=== PATIENT | male | born 1955 | race Caucasian/White ===

== ENCOUNTER 2020-09-26 11:41 | Emergency (ER) | payer SELFPAY ==
--- NOTE | 2020-09-26 13:55 | EDPHYS ---
Physician Documentation [facility] Name: Doc Ely Age: 64 yrs Sex: Male : 1955 Arrival Date: 09/26/2020 Time: 11:43 Bed 13 Private MD: ED Physician Yoni Boone HPI: 09/26 13:08 This 64 yrs old Male presents to ER via Ambulatory with complaints of jmm Laceration To Arm. 13:08 The patient has a laceration occurred at home. Onset: The symptoms/episode jmm began/occurred acutely, just prior to arrival. Associated signs and symptoms: Pertinent negatives: deformity, dizziness, heavy bleeding, loss of consciousness, numbness distal to injury. The patient has experienced similar episodes in the past. Patient states his arm was cut by a 2 x 6 jagged piece of wood. UTD on tetanus immunization. Historical: - Allergies: 12:01 PENICILLINS; aa5 - PMHx: 12:01 Hyperlipidemia; Hypertension; aa5 12:02 Diabetes - NIDDM; aa5 - PSHx: 12:01 None; aa5 - Immunization history:: Last tetanus immunization: < 5 years ago. - Social history:: Smoking status: Patient denies any tobacco usage or history of. ROS: 13:08 Constitutional: Negative for fever, chills, and weight loss, Cardiovascular: Negative jmm for chest pain, palpitations, and edema, Respiratory: Negative for shortness of breath, cough, wheezing, and pleuritic chest pain. 13:08 MS/extremity: Positive for injury or acute deformity, laceration. 13:08 All other systems are negative. Exam: 13:08 Constitutional: This is a well developed, well nourished patient who is awake, alert, jmm and in no acute distress. Head/Face: atraumatic. Eyes: EOMI, no conjunctival erythema appreciated ENT: Moist Mucus Membranes Neck: Trachea midline, Supple Chest/axilla: Normal chest wall appearance and motion. Cardiovascular: Regular rate and rhythm. No edema appreciated Respiratory: Normal respirations, no respiratory distress appreciated Abdomen/GI: Non distended, soft Back: Normal ROM 13:08 MS/ Extremity: Moves all extremities, no obvious deformities appreciated, no edema noted to the lower extremities Neuro: Awake and alert, normal gait Psych: Behavior is normal, Mood is normal, Patient is cooperative and pleasant 13:08 Skin: 3 cm laceration noted to the left arm on the volar surface. Vital Signs: 12:00 BP 145 / 89; Pulse 93; Resp 18 S; Temp 98.2(TE); Pulse Ox 100% on R/A; aa5 14:05 BP 140 / 88; Pulse 78; Resp 16; Pulse Ox 100% on R/A; vg1 Laceration: 13:53 Wound Repair of 3cm ( 1.2in ) subcutaneous laceration to left arm. Distal jmm neuro/vascular/tendon intact. Anesthesia: Local anesthetic administered with 5 mls of 1% lidocaine w/ Epi. Wound prep: Extensive cleansing, Wound irrigation with saline by wi, Particulate matter removal of wood, Copious irrigation. Skin closed with 3 4-0 Prolene using simple sutures and sterile technique. Patient tolerated well. MDM: 13:08 Patient medically screened. [facility] 13:53 Data reviewed: vital signs, nurses notes. Counseling: I had a detailed discussion with surinder the patient and/or guardian regarding: the historical points, exam findings, and any diagnostic results supporting the discharge/admit diagnosis, the need for outpatient follow up, to return to the emergency department if symptoms worsen or persist or if there are any questions or concerns that arise at home. ED course: Patient given wound infection return precautions. patient understood and agrees with the plan of care. . Administered Medications: No medications were administered Disposition: 09/26/20 13:55 Discharged to Home. Impression: Arm Laceration. - Condition is Stable. - Discharge Instructions: Laceration Care, Adult. - Prescriptions for Bactrim DS 800- 160 mg Oral Tablet - take 1 tablet by ORAL route every 12 hours for 7 days; 14 tablet. - Medication Reconciliation Form, Thank You Letter, Antibiotic Education, Prescription Opioid Use form. - Follow up: Private Physician; When: 7 - 10 days; Reason: Recheck today's complaints, Continuance of care, Re-evaluation by your physician. Addendum: 09/29/2020 07:39 Co-signature as Attending Physician, Yoni Boone MD I agree with the assessment and c layton plan of care. Signatures: Yoni Boone MD MD cha Mickail, Joel, PA PA jmm Calderon, Audri, RN RN aa5 Sakshi Rothman, RN RN vg1 Corrections: (The following items were deleted from the chart) 09/26 14:05 13:55 09/26/2020 13:55 Discharged to Home. Impression: Arm Laceration. Condition is vg1 Stable. Forms are Medication Reconciliation Form, Thank You Letter, Antibiotic Education, Prescription Opioid Use. Follow up: Private Physician; When: 7 - 10 days; Reason: Recheck today's complaints, Continuance of care, Re-evaluation by your physician. surinder
--- NOTE | 2020-09-26 13:55 | ER ---
Nurse's Notes [facility] Name: Doc Ely Age: 64 yrs Sex: Male : 1955 Arrival Date: 09/26/2020 Time: 11:43 Bed 13 Private MD: Diagnosis: Arm Laceration Presentation: 09/26 12:00 Chief complaint: Patient states: "I was working in the back yard and cut my arm with aa5 wood". Laceration noted to left FA, no active bleeding noted, dressing applied. 12:00 Coronavirus screen: At this time, the client does not indicate any symptoms associated aa5 with coronavirus-19. Ebola Screen: Patient negative for fever greater than or equal to 101.5 degrees Fahrenheit, and additional compatible Ebola Virus Disease symptoms. Complicating Factors: There are no complicating factors for this patient. Initial Sepsis Screen: Does the patient meet any 2 criteria? No. Patient's initial sepsis screen is negative. Does the patient have a suspected source of infection? No. Patient's initial sepsis screen is negative. Risk Assessment: Do you want to hurt yourself or someone else? Patient reports no desire to harm self or others. Onset of symptoms was September 2020. 12:00 Acuity: RAMON 4 aa5 12:00 Method Of Arrival: Ambulatory aa5 Historical: - Allergies: 12:01 PENICILLINS; aa5 - PMHx: 12:01 Hyperlipidemia; Hypertension; aa5 12:02 Diabetes - NIDDM; aa5 - PSHx: 12:01 None; aa5 - Immunization history:: Last tetanus immunization: < 5 years ago. - Social history:: Smoking status: Patient denies any tobacco usage or history of. Screenin:48 Abuse screen: Denies threats or abuse. Nutritional screening: No deficits noted. vg1 Tuberculosis screening: No symptoms or risk factors identified. Fall Risk No fall in past 12 months (0 pts). No secondary diagnosis (0 pts). No IV (0 pts). Ambulatory Aid- None/Bed Rest/Nurse Assist (0 pts). Gait- Normal/Bed Rest/Wheelchair (0 pts) Mental Status- Oriented to own ability (0 pts). Total Nye Fall Scale indicates No Risk (0-24 pts). Assessment: 13:00 General: Appears in no apparent distress. comfortable, Behavior is calm, cooperative. vg1 Pain: Denies pain. Neuro: Level of Consciousness is awake, alert, obeys commands, Oriented to person, place, time, situation. Cardiovascular: Patient's skin is warm and dry. Respiratory: Airway is patent Respiratory effort is even, unlabored. Musculoskeletal: Circulation, motion, and sensation intact. Injury Description: Laceration sustained to Left FA is clean. Vital Signs: 12:00 BP 145 / 89; Pulse 93; Resp 18 S; Temp 98.2(TE); Pulse Ox 100% on R/A; aa5 14:05 BP 140 / 88; Pulse 78; Resp 16; Pulse Ox 100% on R/A; vg1 ED Course: 11:43 Patient arrived in ED. rg4 12:00 Arm band placed on. aa5 12:05 Triage completed. aa5 13:07 Camden Ramirez PA is PHCP. surinder 13:07 Yoni Boone MD is Attending Physician. surinder 13:47 Sakshi Rothman, RN is Primary Nurse. vg1 13:48 Patient has correct armband on for positive identification. Bed in low position. Call vg1 light in reach. 14:04 No provider procedures requiring assistance completed. Patient did not have IV access vg1 during this emergency room visit. Administered Medications: No medications were administered Outcome: 13:55 Discharge ordered by . [facility] 14:04 Discharged to home ambulatory, with family. vg1 14:04 Condition: stable 14:04 Discharge instructions given to patient, Instructed on discharge instructions, follow up and referral plans. medication usage, wound care, Demonstrated understanding of instructions, follow-up care, medications, wound care, Prescriptions given X 1. 14:05 Patient left the ED. vg1 Signatures: Camden Ramirez PA PA jmm Calderon, Audri, RN RN Mallory Greenfield Sakshi Jovel, DIMAS RN rissa1
[2020-09-26] MEDS ORDERED: LIDOCAINE 1% W/EPI 1:100,000 MDV 20 ML VIAL ONE (13:57)
[2020-09-26 14:16] VITALS: TEMP 98.2; O2SAT 100
[2020-09-26 14:17] VITALS: BP 140/88
== END 2020-09-26 14:05 | disposition home or self-care (01) ==
LOC: ER 11:41
PROC: 0JQH0ZZ Repair Left Lower Arm Subcutaneous Tissue and Fascia, Open Approach (ICD-10-PCS; principal; 2020-09-26)
DX: S41.112A Laceration without foreign body of left upper arm, initial encounter (principal); W26.8XXA Contact with other sharp object(s), not elsewhere classified, initial encounter; Y92.009 Unspecified place in unspecified non-institutional (private) residence as the place of occurrence of the external cause; I10 Essential (primary) hypertension; Z88.0 Allergy status to penicillin
CPT/HCPCS: 99282

== ENCOUNTER 2023-12-15 10:31 | Inpatient (IN) | payer SELFPAY ==
[2023-12-15] MEDS ORDERED: NA CHLORIDE 0.9% 1,000 ML ONE (11:06)
[2023-12-15 11:28] LABS: Absolute Basophils 0.1 K/uL (0-0.5); Absolute Eosinophils 0.2 K/uL (0-0.5); Absolute Lymphocytes (CBC) 1.3 K/uL (0.7-4.9); Absolute Monocytes 0.6 K/uL (0.1-1.3); Absolute Neutrophil 6.2 K/uL (1.8-8.0); Eosinophils % 2.4 % (0-4.4); Hematocrit 46.4 % (39.6-49.0); Hemoglobin 15.5 g/dL (13.6-17.9); Lymphocytes % 15.8 % (15.3-44.8); MCH 32.5 pg (27.0-35.0); MCHC 33.4 g/dL (32.0-36.0); MCV 97.4 fL (80-100); MPV 8.7 fL (7.6-11.3); Monocytes % 7.3 % (3.3-12.3); Neutrophils % 73.5 % (41.7-73.7); Platelets 324 thou/uL (152-406); RBC Red Blood Cell Count 4.77 M/uL (4.33-5.43)
[2023-12-15 11:34] LABS: PT Prothrombin Time 11.4 SECONDS (9.4-12.5); Protime INR 1.02
--- NOTE | 2023-12-15 11:34 | RAD REPORT ---
EXAM DESCRIPTION: CT - Head Brain Wo Cont - 12/15/2023 11:26 am CLINICAL HISTORY: Dizziness COMPARISON: none TECHNIQUE: Computed axial tomography of the head was obtained. IV contrast was not requested. All CT scans are performed using dose optimization technique as appropriate and may include automated exposure control or mA/KV adjustment according to patient size. FINDINGS: An intracranial bleed is not seen The ventricles are normal in caliber No significant hypodense areas within the brain visualized No extra-axial fluid collection is noted. Fluid within the sinuses/ mastoids is not seen IMPRESSION: No acute intracranial abnormality is seen If patient's symptoms persist MRI of the brain would be recommended
--- NOTE | 2023-12-15 11:43 | RAD REPORT ---
EXAM DESCRIPTION: CTHead angio12/15/2023 11:26 am CLINICAL HISTORY: Dizziness COMPARISON: none TECHNIQUE: 100 cc Isovue [address] angiogram of the head was obtained. 3D MIPS reconstruction performed. All CT scans are performed using dose optimization technique as appropriate and may include automated exposure control or mA/KV adjustment according to patient size. FINDINGS: The basilar, anterior cerebral, middle cerebral and posterior cerebral arteries do not dem onstrate a significant stenosis An aneurysm is not seen No large vessel occlusion IMPRESSION: No significant that abnormality is displayed
--- NOTE | 2023-12-15 11:44 | RAD REPORT ---
EXAM DESCRIPTION: Lobo Angio12/15/2023 11:26 am CLINICAL HISTORY: Dizziness COMPARISON: None TECHNIQUE: 100 cc Isovue [address] angiogram of the neck was obtained. 3D MIPS reconstruction performed. All CT scans are performed using dose optimization technique as appropriate and may include automated exposure control or mA/KV adjustment according to patient size. FINDINGS: Visualized aortic arch and great vessels unremarkable Moderate stenosis distal left internal carotid artery Minimal plaque within the remainder the common carotid, internal carotid and external carotid arterie s bilaterally. The Left vertebral artery terminates into PICA. Vertebral arteries unremarkable No dissection is seen. Nascet crieria Mild stenosis 0 to 49 % Moderate stenosis 50-69% Severe stenosis 70-99% IMPRESSION: Moderate stenosis distal left internal carotid artery
[2023-12-15 11:47] LABS: Anion Gap 8.4 mEq/L (5.0-15.0); Potassium 4.4 mEq/L (3.5-5.1); Troponin High Sensitivity 6.2 pg/mL (<58.9)
--- NOTE | 2023-12-15 12:07 | RAD REPORT ---
EXAM DESCRIPTION: MRI - Brain Wo Cont - 12/15/2023 11:56 am CLINICAL HISTORY: Dizziness COMPARISON: Head CT head CT December 15, 2023 TECHNIQUE: Axial, sagittal, and coronal magnetic resonance images of the brain were obtained. FINDINGS: Mild signal within periventricular, deep and subcortical white matter probably ischemic ch anges secondary to small vessel disease Diffusion-weighted/ADC mapping does not reveal small area of abnormal signal left cerebellum compatib le with acute infarction The ventricles are normal caliber. An extra-axial fluid collection is not noted. Fluid within the sinuses/mastoids is not seen IMPRESSION: Small acute left cerebellar infarction
--- NOTE | 2023-12-15 12:24 | RAD REPORT ---
EXAM DESCRIPTION: Arlene Single View12/15/2023 12:06 pm CLINICAL HISTORY: Dizziness COMPARISON: none FINDINGS: The lungs appear clear of acute infiltrate. The heart is normal size IMPRESSION: No acute abnormalities displayed
[2023-12-15] MEDS ORDERED: TENECTEPLASE 50 MG/10 ML VIAL IV ONE (12:34)
--- NOTE | 2023-12-15 12:52 | ER ---
Nurse's Notes [facility] Name: Doc Ely Age: 68 yrs Sex: Male : 1955 Arrival Date: 12/15/2023 Time: 10:31 Bed 19 Private MD: Diagnosis: Cerebellar stroke syndrome-Acute infarction Presentation: 12/14 10:56 Chief complaint: Patient states: sudden onset dizziness while outside doing yard work. kc6 states he wasn't able to stand. reports this happening last week as well. Coronavirus screen: At this time, the client does not indicate any symptoms associated with coronavirus-19. Ebola Screen: No symptoms or risks identified at this time. Initial Sepsis Screen: Does the patient meet any 2 criteria? No. Patient's initial sepsis screen is negative. Does the patient have a suspected source of infection? No. Patient's initial sepsis screen is negative. Risk Assessment: Do you want to hurt yourself or someone else? Patient reports no desire to harm self or others. Onset of symptoms was December 15, 2023. 10:56 Method Of Arrival: Wheelchair kc6 10:56 Acuity: RAMON 3 kc6 Triage Assessment: 10:58 General: Appears in no apparent distress. comfortable, well groomed, well developed, kc6 Behavior is calm, cooperative, appropriate for age. Pain: Denies pain. EENT: No signs and/or symptoms were reported regarding the EENT system. Neuro: Level of Consciousness is awake, alert, obeys commands, Oriented to person, place, time, situation, Appropriate for age [employer] Clerk are equal bilaterally Moves all extremities. Full function Gait is steady, Speech is normal, Facial symmetry appears normal, Pupils are PERRLA, Intact Babinski is positive Reports dizziness, weakness in right leg and left leg. Cardiovascular: Capillary refill < 3 seconds. Respiratory: Airway is patent Trachea midline Respiratory effort is even, unlabored, Respiratory pattern is regular, symmetrical. GI: No signs and/or symptoms were reported involving the gastrointestinal system. : No signs and/or symptoms were reported regarding the genitourinary system. Derm: No signs and/or symptoms reported regarding the dermatologic system. Skin is intact, is healthy with good turgor, Skin is pink, warm \T\ dry. Musculoskeletal: No signs and/or symptoms reported regarding the musculoskeletal system. Circulation, motion, and sensation intact. Capillary refill < 3 seconds, Range of motion: intact in all extremities. Historical: - Allergies: 10:58 PENICILLINS; kc6 - PMHx: 10:58 Diabetes - NIDDM; Hyperlipidemia; Hypertension; kc6 - PSHx: 10:58 None; kc6 - Immunization history:: Client reports receiving the 2nd dose of the Covid vaccine, Flu vaccine is not up to date. - Infectious Disease History:: Denies. - Social history:: Smoking status: Patient denies any tobacco usage or history of. - Family history:: not pertinent. - Hospitalizations: : No recent hospitalization is reported. Screenin:59 [facility] ED Fall Risk Assessment (Adult) History of falling in the last 3 months, kc6 including since admission No falls in past 3 months (0 pts) Confusion or Disorientation No (0 pts) Intoxicated or Sedated No (0 pts) Impaired Gait No (0 pts) Mobility Assist Device Used No (0 pt) Altered Elimination No (0 pt) Score/Fall Risk Level 0 - 2 = Low Risk. Abuse screen: Denies threats or abuse. Denies injuries from another. Nutritional screening: No deficits noted. Tuberculosis screening: No symptoms or risk factors identified. 13:09 [place] Swallow Protocol Exclusion Criteria: Unable to remain alert for testing: No NPO me1 for medical/surgical reason by provider order No Head-of-bed restricted <30 degrees Yes Tracheostomy tube present No No thin liquids due to preexisting dysphagia/baseline modified diet thickened liquids No Brief Cognitive Screen What is your name? Normal, Where are you right now? Normal, What year is it? Normal. Oral Mechanism Examination Facial Symmetry: Normal, Motion: Normal, Lip Closure: Normal, 3 oz Water Swallow Challenge: Pt able to drink all water without stopping, coughing, choking or throat clearing: Yes Result: PASS Notified: Isidoro Herbert MD. 13:09 VAN Screening: Arm Drift: Patient shows no arm weakness. Patient is VAN negative. es3 Visual Disturbance: No visual disturbance noted. Aphasia: No aphasia noted. Neglect: No neglect noted. Assessment: 10:59 Reassessment: please see triage. kc6 11:22 Reassessment: pt to CT via wheelchair. kc6 12:05 Reassessment: pt returned from CT via wheelchair. kc6 15:22 General: transfer delayed, phlebotomy and speech pathologist at bedside . me1 Vital Signs: 10:56 BP 179 / 93; Pulse 79; Resp 19 S; Pulse Ox 99% on R/A; Weight 96.62 kg (R); Height 6 kc6 ft. 0 in. (R); Pain 0/10; 12:00 BP 168 / 77; Pulse 79; Resp 16; Pulse Ox 100% ; me1 13:00 BP 146 / 73; Pulse 87; Resp 15; Pulse Ox 100% ; me1 14:00 BP 146 / 76; Pulse 88; Resp 15; Pulse Ox 99% on R/A; me1 10:56 Body Mass Index 28.89 (96.62 kg, 182.88 cm) kc6 10:56 Pain Scale: Adult kc6 Harwood Coma Score: 10:56 Eye Response: spontaneous(4). Motor Response: obeys commands(6). Verbal Response: kc6 oriented(5). Total: 15. NIH Stroke Scale Scores: 10:56 NIHSS Score: 0 kc6 13:09 NIHSS Score: 0 co1 ED Course: 10:33 Patient arrived in ED. ra3 10:42 Isidoro Herbert MD is Attending Physician. rn 10:47 Meena Kaba RN is Primary Nurse. kc6 10:58 Triage completed. kc6 10:58 Arm band placed on. kc6 10:59 Patient has correct armband on for positive identification. Bed in low position. Call kc6 light in reach. Side rails up X 1. Adult w/ patient. Pulse ox on. NIBP on. Pillow given. 11:[address] via wheelchair. kc6 11:22 Inserted saline lock: 22 gauge in left antecubital area, using aseptic technique. Blood kc6 collected. Flushed with 10 mL NS. 11:28 CT Head Brain wo Cont In Process Unspecified. EDMS 11:[address] In Process Unspecified. EDMS 11:28 Head angio In Process Unspecified. EDMS 11:48 Brain Wo Cont MRI In Process Unspecified. EDMS 12:05 Patient moved back from CT. kc6 12:07 XRAY Chest (1 view) In Process Unspecified. EDMS 12:08 Report given to Annalisa Urban RN. kc6 12:51 Bill Finley MD is Hospitalizing Provider. rn 13:27 1327 CM attempted initial assessment, provider at bedside discussing plan of care. ane 13:32 CM met with patient and his Lorie at the bedside. Patient identified by name and josie . Demographic sheet confirmed. Patient states he lives with his and granddaughter in a single story home. reports prior to admission, he performs ADLS independently and without physical limitations. NO MPOA in place at this time. No HH, home oxygen, DME or other medical services at this time. Mr. Ely's plan is to return home upon discharge. Lorie states either her or their granddaughter may transport Mr. Ely home. CM team will continue to follow and coordinate care. 14:59 Inserted saline lock: 20 gauge in right antecubital area, using aseptic technique. me1 14:59 No provider procedures requiring assistance completed. Patient admitted, IV remains in me1 place. 15:00 Provided Education on: s/s of bleeding, including GI bleed- report dark tarry stools or me1 coffee ground stools/emesis, verbalized understanding. . Administered Medications: 12:08 Drug: NS 0.9% IV 1000 ml IV at 1000 ml once Route: IV; Rate: 1000 ml; Site: left co1 antecubital; 13:28 Follow up: Response: No adverse reaction; IV Status: Completed infusion; IV Intake: me1 1000ml 12:45 Drug: TNK FOR STROKE - Tenecteplase IV (Administer 10 ml NS flush BEFORE and me1 AFTER tenecteplase) 0.25 mg/kg IV at per protocol once; MAX DOSE 25 mg, IVP over 5 seconds {Co-Signature: ap3 (Luann Sales RN).} Route: IV; Rate: per protocol; Site: left antecubital; 14:43 Follow up: Response: No adverse reaction; IV Status: Completed infusion me1 13:39 Drug: foLIC Acid IVPB 1 mg IVPB once Route: IVPB; Site: left antecubital; me1 14:42 Follow up: IV Status: Completed infusion; IV Intake: 1339ml me1 Medication: 15:01 VIS not applicable for this client. me1 Intake: 13:28 IV: 1000ml; Total: 1000ml. me1 14:42 IV: 1339ml; Total: 2339ml. me1 Outcome: 12:51 Decision to Hospitalize by Provider. rn 15:00 Admitted to ICU accompanied by nurse, via wheelchair, room -4, on monitor, with chart, co1 Report called to Santa Lopez RN 15:00 Condition: stable 15:00 Instructed on the need for admit, 15:41 Patient left the ED. me1 NIH Stroke Scale - NIH Stroke Score Date: 12/15/2023 Time: 10:56 Total Score = 0 10. Dysarthria (speech clarity - read or repeat words) - 0(Normal) 11. Extinction and Inattention (visual/tactile/auditory/spatial/personal) - 0(No abnormality) 1a. Level of Consciousness (LOC) - 0(Alert) 1b. Level of Consciousness (LOC) (Month \T\ Age) - 0(Both) 1c. LOC Commands (Open \T\ Closes Eyes/Medical Coding Specialist) - 0(Both) 2. Best Gaze (Lateral Gaze Paresis) - 0(Normal) 3. Visual Field Loss - 0(No visual loss) 4. Facial Palsy - 0(Normal) 5a. Left Arm: Motor (10-second hold) - 0(No drift) 5b. Right Arm: Motor (10-second hold) - 0(No drift) 6a. Left Leg: Motor (5-second hold - always test supine) - 0(No drift) 6b. Right Leg: Motor (5-second hold - always test supine) - 0(No drift) 7. Limb Ataxia (finger/nose \T\ heel/caal - test with eyes open) - 0(Absent) 8. Sensory Loss (pinprick arms/legs/face) - 0(Normal) 9. Best Language: Aphasia (description/naming/reading) - 0(No aphasia) Initials: kc6 NIH Stroke Scale - NIH Stroke Score Date: 12/15/2023 Time: 13:09 Total Score = 0 10. Dysarthria (speech clarity - read or repeat words) - 0(Normal) 11. Extinction and Inattention (visual/tactile/auditory/spatial/personal) - 0(No abnormality) 1a. Level of Consciousness (LOC) - 0(Alert) 1b. Level of Consciousness (LOC) (Month \T\ Age) - 0(Both) 1c. LOC Commands (Open \T\ Closes Eyes/Medical Coding Specialist) - 0(Both) 2. Best Gaze (Lateral Gaze Paresis) - 0(Normal) 3. Visual Field Loss - 0(No visual loss) 4. Facial Palsy - 0(Normal) 5a. Left Arm: Motor (10-second hold) - 0(No drift) 5b. Right Arm: Motor (10-second hold) - 0(No drift) 6a. Left Leg: Motor (5-second hold - always test supine) - 0(No drift) 6b. Right Leg: Motor (5-second hold - always test supine) - 0(No drift) 7. Limb Ataxia (finger/nose \T\ heel/caal - test with eyes open) - 0(Absent) 8. Sensory Loss (pinprick arms/legs/face) - 0(Normal) 9. Best Language: Aphasia (description/naming/reading) - 0(No aphasia) Initials: me1 Signatures: Dispatcher [employer] EDIsidoro Barger MD MD rn Campbell, Kaitlyn, RN RN kc6 Annalisa Urban RN RN co1 Elyssa Rojas, DIMAS [id number] Roberta Posadas 3 Viktoriya Rendon RN RN ane Prokisch, Amanda RN ap3
--- NOTE | 2023-12-15 12:52 | EDPHYS ---
Physician Documentation [facility] Name: Doc Ely Age: 68 yrs Sex: Male : 1955 Arrival Date: 12/15/2023 Time: 10:31 Bed 19 Private MD: ED Physician Isidoro Herbert HPI: 12/14 11:30 This 68 yrs old Male presents to ER via Wheelchair with complaints of Dizziness. rn 11:30 The patient presents with feeling faint, generalized weakness, lightheadedness. Onset: rn The symptoms/episode began/occurred this morning. Modifying factors: The symptoms are alleviated by lying down, the symptoms are aggravated by standing up, changing position. Severity of symptoms: At their worst the symptoms were moderate in the emergency department the symptoms have improved. The patient has experienced a previous episode. Historical: - Allergies: 10:58 PENICILLINS; kc6 - PMHx: 10:58 Diabetes - NIDDM; Hyperlipidemia; Hypertension; kc6 - PSHx: 10:58 None; kc6 - Immunization history:: Client reports receiving the 2nd dose of the Covid vaccine, Flu vaccine is not up to date. - Infectious Disease History:: Denies. - Social history:: Smoking status: Patient denies any tobacco usage or history of. - Family history:: not pertinent. - Hospitalizations: : No recent hospitalization is reported. ROS: 11:30 Constitutional: Negative for fever, chills, and weight loss, Eyes: Negative for injury, rn pain, redness, and discharge, Cardiovascular: Negative for chest pain, palpitations, and edema, Respiratory: Negative for shortness of breath, cough, wheezing, and pleuritic chest pain, Abdomen/GI: Negative for abdominal pain, nausea, vomiting, diarrhea, and constipation, Back: Negative for injury and pain, MS/Extremity: Negative for injury and deformity, Skin: Negative for injury, rash, and discoloration, Neuro: Positive for dizziness and lightheadedness, no focal weakness or numbness. No speech or vision changes. Exam: 11:30 Constitutional: This is a well developed, well nourished patient who is awake, alert, rn and in no acute distress. Patient appears flushed and very sweaty from being outside. Eyes: Pupils equal round and reactive to light, extra-ocular motions intact. ENT: Dry mucous membranes Cardiovascular: Regular rate and rhythm. No pulse deficits. Respiratory: No increased work of breathing, no retractions or nasal flaring. Abdomen/GI: Soft, non-tender MS/ Extremity: Pulses equal, no cyanosis. Neurovascular intact. Full, normal range of motion. Equal circumference. Neuro: Awake and alert, GCS 15, oriented to person, place, time, and situation. Cranial nerves II-XII grossly intact. Motor strength 5/5 in all extremities. Sensory grossly intact. Cerebellar exam normal. 17:29 ECG was reviewed by the Attending Physician. rn Vital Signs: 10:56 BP 179 / 93; Pulse 79; Resp 19 S; Pulse Ox 99% on R/A; Weight 96.62 kg (R); Height 6 kc6 ft. 0 in. (R); Pain 0/10; 12:00 BP 168 / 77; Pulse 79; Resp 16; Pulse Ox 100% ; me1 13:00 BP 146 / 73; Pulse 87; Resp 15; Pulse Ox 100% ; me1 14:00 BP 146 / 76; Pulse 88; Resp 15; Pulse Ox 99% on R/A; me1 10:56 Body Mass Index 28.89 (96.62 kg, 182.88 cm) kc6 10:56 Pain Scale: Adult kc6 NIH Stroke Scale Scores: 10:56 NIHSS Score: 0 kc6 13:09 NIHSS Score: 0 me1 Terri Coma Score: 10:56 Eye Response: spontaneous(4). Motor Response: obeys commands(6). Verbal Response: kc6 oriented(5). Total: 15. MDM: 10:42 Patient medically screened. rn 11:04 ED course: Patient reports dizziness while doing work outside, was outside for about 45 rn minutes helping son. States this happened last week as well with dizziness but only lasted about 10 minutes and went away on its own. Now feels much better, denies any focal weakness or numbness. No vision changes. No speech difficulty. Patient reports feeling weak all over and both legs feel like they were going to give out. NIH 0. Patient reports pretty much back to baseline right now and family confirms.. 12:32 ED course: last known normal 10am. rn 12:33 ED course: CT head without acute findings. CT angio head and neck without LVO. MRI rn shows acute left cerebellar infarct. Discussed with patient and onset was 10 AM today, within TNK window, consented and will give TNK.. 12:35 ED course: Delay due to rapid improvement of symptoms prior to arrival, setting in rn which he presented after working outside diaphoretic and sweaty with weakness all over and no focal neurological deficits. NIH was 0. Given MRI finding of acute cerebellar stroke and patient not 100% back to normal, consented for TNK administration as it is still within the window.. 12:50 Differential diagnosis: CVA, generalized weakness, idiopathic dizziness, TIA, vertigo. rn Data reviewed: vital signs, nurses notes, lab test result(s), radiologic studies, CT scan, MRI, and as a result, I will admit patient. Consideration of Admission/Observation Patient was admitted/placed on observation. Escalation of care including admission/observation considered. Care significantly affected by the following chronic conditions: Diabetes, Hypertension. Counseling: I had a detailed discussion with the patient and/or guardian regarding the historical points, exam findings, and any diagnostic results supporting the discharge/admit diagnosis, lab results, radiology results, the need for further work-up and treatment in the hospital. 12:50 ED course: I personally spent 35 minutes engaged in work directly related to the rn individual patient's care. This does not include any time spent performing procedures. The patient has been deemed critically ill because of difficult presentation of symptoms requiring multiple visits and reevaluations with acute stroke requiring TNKase in window. . 13:58 ED course: Patient feeling better status post TNKase. Able to set up without much rn dizziness but still not 100% back to normal.. 12/14 11:03 Order name: Basic Metabolic Panel; Complete Time: 11: 12/14 11:03 Order name: CBC with Diff; Complete Time: 11: rn 12/14 11:03 Order name: Magnesium; Complete Time: 11: rn 12/14 11:03 Order name: NT PRO-BNP; Complete Time: 11: rn 12/14 11:03 Order name: PT-INR; Complete Time: 11: rn 12/14 11:03 Order name: Troponin HS; Complete Time: : rn 12/14 11:41 Order name: CREATININE WHOLE BLOOD; Complete Time: 11: EDAR 12/14 13:03 Order name: Glucose, Ancillary Testing; Complete Time: 13:11 EDAR 12/14 13:48 Order name: RPR EDMS 12/14 13:48 Order name: Vitamin B12 Level EDMS 12/14 13:48 Order name: Vitamin D, 25 (OH), TOTAL EDMS 12/14 13:48 Order name: Basic Metabolic Panel EDMS 12/14 13:48 Order name: Basic Metabolic Panel EDMS 12/14 13:48 Order name: Basic Metabolic Panel EDMS 12/14 13:48 Order name: Basic Metabolic Panel EDMS 12/14 13:48 Order name: Basic Metabolic Panel EDMS 12/14 13:48 Order name: Basic Metabolic Panel EDMS 12/14 13:48 Order name: CBC with Automated Diff EDMS 12/14 13:48 Order name: CBC with Automated Diff EDMS 12/14 13:48 Order name: CBC with Automated Diff EDMS 12/14 13:48 Order name: CBC with Automated Diff EDMS 12/14 13:48 Order name: CBC with Automated Diff EDMS 12/14 13:48 Order name: CBC with Automated Diff EDMS 12/14 13:48 Order name: Lipid Profile EDMS 12/14 13:48 Order name: Lipid Profile EDMS 12/14 13:48 Order name: Magnesium EDMS 12/14 13:48 Order name: Magnesium EDMS 12/14 13:48 Order name: Magnesium EDMS 12/14 13:48 Order name: Magnesium EDMS 12/14 13:48 Order name: Magnesium EDMS 12/14 13:48 Order name: Magnesium EDMS 12/14 13:48 Order name: Phosphorus EDMS 12/14 13:48 Order name: Phosphorus EDMS 12/14 13:48 Order name: Phosphorus EDMS 12/14 13:48 Order name: Phosphorus EDMS 12/14 13:48 Order name: Phosphorus EDMS 12/14 13:48 Order name: Phosphorus EDMS 12/14 13:48 Order name: T4,Total EDMS 12/14 13:48 Order name: T4,Total EDMS 12/14 13:48 Order name: Thyroid Stimulating Hormone EDMS 12/14 13:48 Order name: Thyroid Stimulating Hormone EDMS 12/14 13:48 Order name: Troponin High Sensitivity EDMS 12/14 13:48 Order name: Troponin High Sensitivity EDMS 12/14 13:48 Order name: Troponin High Sensitivity EDMS 12/14 13:48 Order name: Anti-Thrombin III Activity EDMS 12/14 13:48 Order name: C-ANCA Anti-Proteinase 3 EDAR 12/14 13:48 Order name: Cardiolipin Antibodies G,M EDAR 12/14 13:48 Order name: Factor V Leiden Mutation EDAR 12/14 13:48 Order name: Homocysteine [facility] 12/14 13:48 Order name: Miscellaneous Test Lab [facility] 12/14 13:48 Order name: P-ANCA Anti-Myeloperoxidase Ab [facility] 12/14 13:48 Order name: PROTHROMBIN GENE ANALYSIS (F2) [facility] 12/14 13:48 Order name: Protein C Antigen [facility] 12/14 13:48 Order name: Protein Electo w/M Scott Serum EDAR 12/14 13:48 Order name: Protein S (Total [facility] 12/14 11:03 Order name: CT Head Brain wo Cont; Complete Time: 11:50 rn 12/14 11:03 Order name: Neck Angio CT; Complete Time: 11:50 rn 12/14 11:03 Order name: Brain Wo Cont MRI; Complete Time: 12:28 rn 12/14 11:03 Order name: XRAY Chest (1 view); Complete Time: 12:28 rn 12/14 11:07 Order name: Head angio; Complete Time: 11:50 [facility] 12/14 13:48 Order name: Echo with Doppler [facility] 12/14 11:03 Order name: EKG; Complete Time: 11:04 rn 12/14 13:48 Order name: CONS Physician Consult [facility] 12/14 13:48 Order name: IRF Screen [facility] 12/14 13:48 Order name: Physical Therapy Consult [facility] 12/14 13:48 Order name: EKG Electrocardiogram [facility] 12/14 13:48 Order name: Speech Therapy Consult [facility] 12/14 11:03 Order name: IV Start; Complete Time: 11: rn 12/14 11:03 Order name: Cardiac monitoring; Complete Time: 11: rn 12/14 11:03 Order name: EKG - Nurse/Tech; Complete Time: 11: rn 12/14 11:03 Order name: Labs collected and sent; Complete Time: 11: rn 12/14 11:03 Order name: O2 Per Protocol; Complete Time: 11: rn 12/14 11:03 Order name: O2 Sat Monitoring; Complete Time: 11:04 rn EC:29 Rate is 86 beats/min. Rhythm is regular. QRS [place] is Normal. MD interval is normal. QRS rn interval is normal. QT interval is normal. No Q waves. T waves are Normal. No ST changes noted. Clinical impression: Normal ECG. Interpreted by me. Reviewed by me. Administered Medications: 12:08 Drug: NS 0.9% IV 1000 ml IV at 1000 ml once Route: IV; Rate: 1000 ml; Site: left mi1 antecubital; 13:28 Follow up: Response: No adverse reaction; IV Status: Completed infusion; IV Intake: me1 1000ml 12:45 Drug: TNK FOR STROKE - Tenecteplase IV (Administer 10 ml NS flush BEFORE and me1 AFTER tenecteplase) 0.25 mg/kg IV at per protocol once; MAX DOSE 25 mg, IVP over 5 seconds {Co-Signature: ap3 (Luann Sales RN).} Route: IV; Rate: per protocol; Site: left antecubital; 14:43 Follow up: Response: No adverse reaction; IV Status: Completed infusion [facility] 13:39 Drug: foLIC Acid IVPB 1 mg IVPB once Route: IVPB; Site: left antecubital; [facility] 14:42 Follow up: IV Status: Completed infusion; IV Intake: 1339ml me1 Disposition Summary: 12/15/23 12:51 Hospitalization Ordered Notes: Hospitalization Status: Inpatient Admission rn Provider: Bill Finley rn Condition: Stable rn Problem: new rn Symptoms: have improved rn Bed/Room Type: Standard rn Location: Intensive Care Unit(12/15/23 14:10) Room Assignment: 4-(12/15/23 14:50) dw Diagnosis - Cerebellar stroke syndrome - Acute infarction rn Forms: - Medication Reconciliation Form rn - SBAR form rn - Leadership Thank You Letter government instructor time excluding procedures: 12:50 Critical care time: Bedside Care: 35 minutes. Total time: 35 minutes rn NIH Stroke Scale - NIH Stroke Score Date: 12/15/2023 Time: 10:56 Total Score = 0 10. Dysarthria (speech clarity - read or repeat words) - 0(Normal) 11. Extinction and Inattention (visual/tactile/auditory/spatial/personal) - 0(No abnormality) 1a. Level of Consciousness (LOC) - 0(Alert) 1b. Level of Consciousness (LOC) (Month \T\ Age) - 0(Both) 1c. LOC Commands (Open \T\ Closes Eyes/Scalper Operator) - 0(Both) 2. Best Gaze (Lateral Gaze Paresis) - 0(Normal) 3. Visual Field Loss - 0(No visual loss) 4. Facial Palsy - 0(Normal) 5a. Left Arm: Motor (10-second hold) - 0(No drift) 5b. Right Arm: Motor (10-second hold) - 0(No drift) 6a. Left Leg: Motor (5-second hold - always test supine) - 0(No drift) 6b. Right Leg: Motor (5-second hold - always test supine) - 0(No drift) 7. Limb Ataxia (finger/nose \T\ heel/caal - test with eyes open) - 0(Absent) 8. Sensory Loss (pinprick arms/legs/face) - 0(Normal) 9. Best Language: Aphasia (description/naming/reading) - 0(No aphasia) Initials: kc6 NIH Stroke Scale - NIH Stroke Score Date: 12/15/2023 Time: 13:09 Total Score = 0 10. Dysarthria (speech clarity - read or repeat words) - 0(Normal) 11. Extinction and Inattention (visual/tactile/auditory/spatial/personal) - 0(No abnormality) 1a. Level of Consciousness (LOC) - 0(Alert) 1b. Level of Consciousness (LOC) (Month \T\ Age) - 0(Both) 1c. LOC Commands (Open \T\ Closes Eyes/Scalper Operator) - 0(Both) 2. Best Gaze (Lateral Gaze Paresis) - 0(Normal) 3. Visual Field Loss - 0(No visual loss) 4. Facial Palsy - 0(Normal) 5a. Left Arm: Motor (10-second hold) - 0(No drift) 5b. Right Arm: Motor (10-second hold) - 0(No drift) 6a. Left Leg: Motor (5-second hold - always test supine) - 0(No drift) 6b. Right Leg: Motor (5-second hold - always test supine) - 0(No drift) 7. Limb Ataxia (finger/nose \T\ heel/caal - test with eyes open) - 0(Absent) 8. Sensory Loss (pinprick arms/legs/face) - 0(Normal) 9. Best Language: Aphasia (description/naming/reading) - 0(No aphasia) Initials: me1 Signatures: Dispatcher [employer] [facility] Otilia Winslow RN RN dw Nieto, Roman, MD MD rn Botello, Elizabeth eb Campbell, Kaitlyn, RN RN kc6 Annalisa Urban RN RN me1 Luann Sales RN ap3 Corrections: (The following items were deleted from the chart) 11:04 11:04 Neck Angio+CT.RAD.BRZ ordered. EDAR EDMS 11:04 11:04 Brain Wo Cont+MRI.RAD.BRZ ordered. EDAR EDMS 11:04 11:04 BASIC METABOLIC PANEL+C.LAB.BRZ ordered. EDAR EDAR 11:04 11:04 CBC+H.LAB.BRZ ordered. EDAR EDMS 11:04 11:04 MAGNESIUM+C.LAB.BRZ ordered. EDAR EDAR 11:04 11:04 PROBNP+C.LAB.BRZ ordered. EDAR EDMS 11:04 11:04 PROTIME (+INR)+COAG.LAB.BRZ ordered. EDAR EDMS 11:04 11:04 Troponin High Sensitivity+C.LAB.BRZ ordered. EDAR EDMS 11:32 11:30 Constitutional: This is a well developed, well nourished patient who is rn awake, alert, and in no acute distress. Eyes: Pupils equal round and reactive to light, extra-ocular motions intact. ENT: Dry mucous membranes Cardiovascular: Regular rate and rhythm. No pulse deficits. Respiratory: No increased work of breathing, no retractions or nasal flaring. Abdomen/GI: Soft, non-tender MS/ Extremity: Pulses equal, no cyanosis. Neurovascular intact. Full, normal range of motion. Equal circumference. Neuro: Awake and alert, GCS 15, oriented to person, place, time, and situation. Cranial nerves II-XII grossly intact. Motor strength 5/5 in all extremities. Sensory grossly intact. Cerebellar exam normal. rn 14: 13:49 Chest Pa And Lat (2 Views) ordered. [facility] 14:09 12:51 Intensive Care Unit rn eb 14: 12:51 rn eb 14:10 14:09 Telemetry/MedSurg (Inpatient) eb eb 14:10 14:09 225 eb eb 14:28 14:10 eb eb 14:50 14:28 3- eb dw
--- NOTE | 2023-12-15 13:13 | P.HP ---
Certification for Inpatient Patient admitted to: Inpatient With expected LOS: <2 Midnights Practitioner: I am a practitioner with admitting privileges, knowledge of patient current condition, hospital course, and medical plan of care. Services: Services provided to patient in accordance with Admission requirements found in Title 42 Section 412.3 of the Code of Federal Regulations Patient History Date of Service: 12/15/23 Reason for admission: CVA History of Present Illness: Doc Ely is a 68 year old male with PMhx diabetes mellitusNIDDM, hypertension, hyperlipidemia who presents to the ED with chief complaint of feeling faint, lightheadedness, generalized weakness which started this morning. He reports feeling that he could not get off of the lawnmower and asked family to help him at which time it took his and son to help him into the house. He reports never having an episode similar to this in the past. Initial Head CT and CTA are negative for acute findings but MRI head showing "Small acute left cerebellar infarction." TNK administered around 1234. Labs unremarkable. Initial vitals BP 179 / 93; Pulse 79; Resp 19 S; Pulse Ox 99% on R/A CT and CTA of head reports no acute findings CTA neck reports "Moderate stenosis distal left internal carotid artery" MRI brain reports "Small acute left cerebellar infarction." Chest X-ray reports "the lungs appear clear of acute infiltrate. The heart is normal size. IMPRESSION: No acute abnormalities displayed." Doc will be admitted to hospitalist service for further evaluation and treatment of acute CVA, Dr. Vaughan consulted. Allergies Penicillins Allergy (Unverified 07/19/15 08:56) Unknown Home Medications: Amlodipine [Norvasc*] 5 mg PO DAILY 12/15/23 glipiZIDE [Glipizide] 5 mg PO DAILY 12/15/23 lisinopriL [Lisinopril] 20 mg PO DAILY 12/15/23 - Past Medical/Surgical History -: Diabetes mellitus-NIDDM -: HLD -: HTN - Family History Father -: Heart disease Mother -: Cancer Sister -: Heart disease, Cancer Review of Systems General: Weakness Neurological: Other (Dizziness, lightheadedness, feeling faint) Physical Examination - Physical Exam General: Alert, In no apparent distress, Oriented x3 HEENT: Atraumatic, Normocephalic Neck: Supple, JVD not distended Respiratory: Clear to auscultation bilaterally, Normal air movement Cardiovascular: Normal pulses, Regular rate/rhythm, Normal S1 S2 Gastrointestinal: Normal bowel sounds, Soft and benign Musculoskeletal: No clubbing Integumentary: No rashes Neurological: Normal speech, Normal tone - Studies Laboratory Data (last 24 hrs) 12/15/23 12/15/23 12/15/23 11:21 11:21 11:21 WBC 8.40 Hgb 15.5 Hct 46.4 Plt Count 324 PT 11.4 INR 1.02 Sodium 140 Potassium 4.4 BUN 16 Creatinine 1.50 H Glucose 179 H Magnesium 2.0 Assessment and Plan - Plan Assessment and plan Acute CVA Dizziness and weakness - CT and CTA of head reports no acute findings - CTA neck reports "Moderate stenosis distal left internal carotid artery" - MRI brain reports "Small acute left cerebellar infarction." - Consulted Neurology - recommendations appreciated - Admit under observation status - No neurologic deficits on my exam - NIHSS = 0 - Allow permissive hypertension for tonight - q4hr neurochecks - Ordered TTE - PT/OT/BRIDGE MAINTENANCE WORKER evaluation requested, BRIDGE MAINTENANCE WORKER recommends regular diet - Ordered risk profile: Hgb A1c, lipid panel, TSH - Started atorvastatin and folic acid, aspirin on hold until 24 hour s/p TNK given at 1234 Left internal carotid artery stenosis -CTA neck reports "Moderate stenosis distal left internal carotid artery" -Moderate stenosis is 50-69% -Follow up outpatient Diabetes Mellitus-NIDDM -recently stopped metformin -Accu-Chek with sliding scale insulin -A1c in the a.m. HTN/HLD -unclear if he has been treated in the past -will monitor DVT ppx SCD, s/p TNK at 1234 Full code LOS 24 hour OBS Discharge Plan: Home Plan to discharge in: 24 Hours - Advance Directives Does patient have a Living Will: No Does patient have a Durable POA for Healthcare: No
--- NOTE | 2023-12-15 13:26 | EKG ---
Test Date: 2023-12-15 Test Time: 11:12:21 Flying I Instructor: TERRI MEASUREMENT RESULTS: Intervals: Rate: 86 OK: 186 QRSD: 84 QT: 378 QTc: 452 Darragh: P: 72 OK: 186 QRS: 78 T: 5 INTERPRETIVE STATEMENTS: Normal sinus rhythm Normal ECG No previous ECG available for comparison Electronically Signed On 12-15-23 13:25:53 CDT by Benjamin Britton
[2023-12-15] MEDS ORDERED: FOLIC ACID 5 MG/ML VIAL ONE (13:37)
[2023-12-15] MEDS ORDERED: ACETAMINOPHEN 500 MG TAB PO PRN (13:39)
[2023-12-15] MEDS ORDERED: ACETAMINOPHEN 325 MG TABLET PO PRN (13:53)
[2023-12-15] MEDS: INSULIN REGULAR (HUMAN) 100 UNIT/ML SQ SCH (16:30)
[2023-12-15 16:31] VITALS: BMI 28.3
[2023-12-15] MEDS ORDERED: FOLIC ACID 1 MG TABLET PO ONE (17:13)
[2023-12-15] MEDS: NA CHLORIDE 0.9% 1,000 ML IV SCH (18:08)
[2023-12-15] MEDS: ATORVASTATIN 40 MG TAB PO SCH (21:00)
--- NOTE | 2023-12-15 21:21 | CON ---
Reason For Consultation: Consultation called because of stroke. History Of Present Illness: Mr. Ely is a 68-year-old patient with poor compliance with his isreal betes mellitus, hypertension, dyslipidemia, who developed sudden onset pain feeling, lightheadedness, generalized weakness while he was on a clinic mgr in the morning on 12/15/2023. His family helped h im, took him off the mower, and came to [facility] where his arrival time was 10:31 a.m. and his symptoms had occurred within the 4-1/2-hour window of onset of his symptoms. His head CT scan s howed no acute ischemic or hemorrhagic changes. His NIH Stroke Scale was 0. However, given the isaiah ent's sudden change and clinical presentation, he was determined to be having an acute stroke and he was treated with TNK. TNK was given at 12:45. His conjugations were ruled out prior to receiving TN K. The patient says that he is actually returning almost back to normal. His feels a little bit lig htheaded and disoriented at the time of my evaluation, but his coordination, strength, and sensation in arms and legs were all intact. In terms of his compliance with medications, he said he had stoppe d medications about 6 months ago that include aspirin, his medication for diabetes mellitus, dyslipid emia, hypertension. Allergies: PENICILLIN. Past Medical History: [id number] diabetes mellitus, hypertension, dyslipidemia. Past Surgical History: None. Social History: The patient did smoke and drank in the past, but nothing recently. He is by 50 years in their teens. Did receive a second dose of a COVID vaccine. Flu shot is not up-to-date. Family History: His father had myocardial infarction. Review of Systems: Denies any fevers, chills, nausea, vomiting, myalgias, arthralgias, rash, headache, weight change. N o psychiatric issues or gastrointestinal or genitourinary issues. Physical Examination: Vital Signs: Blood pressure 146/76, pulse 88, respiratory rate of 15, temperature 99. Weight is 213 pounds, height 6 feet, BMI 28.9. General: Mr. Ely is in the ICU following TNK. HEENT: He is normocephalic, atraumatic. Sclerae anicteric. Oropharynx pink and moist. Neck: Supple. Chest: Clear. Heart: Regular. Extremities: Show no clubbing, cyanosis, or edema. Neurological: Cranial nerves 2 through 12 intact by exam. Motor examination, 5/5 proximally and dis tally in arms and legs. Sensation intact in upper and lower extremities proximally and distally. Re flexes 2+ and symmetric in upper and lower extremities. Laboratory Studies: Complete blood count with differential is completely normal. Coagulation panel, INR 1.02. Stroke and blood work is pending. His glucose -136. His vitamin D level is lo w at 27.2, vitamin B12 415, and again stroke workup is pending. His electrocardiogram shows normal s inus rhythm, normal study. The brain MRI identified a small acute left cerebellar stroke. CT angiog paco of the head showed no significant abnormalities in [place]. CT angiogram of the neck sh owed moderate stenosis in the distal left internal carotid artery. Assessment: Mr. Ely is a 68-year-old patient with left cerebellar stroke while noncompliant wi th his medications for diabetes, hypertension, dyslipidemia. He is overweight at BMI around 29. He had stopped all medications around 6 months ago including aspirin. Neurologically, he is back to a n ormal baseline after TNK. Plan: Continue with statin that is high-dose statin. Permissive hypertension over the next 3 to 5 d ays. Aggressive management again of his diabetes mellitus. His blood sugars are slightly elevated. He said his most recent hemoglobin A1c was 7. He has low vitamin D levels. Should take vitamin D 5 000 units daily. Again, aspirin 81 mg daily and again high-dose statin. His cholesterol panel is pe nding. He may be discharged to the floor and home after the 24-hour CT scan is done and repeated and is negative. He may follow up in Dr. Vaughan's clinic within the month. ERINN/LORENA Voice ID: [id number] Report ID: [id number]
[2023-12-16 00:11] LABS: RPR (Rapid Plasma Reagin) NON-REACT (NON-REACT)
[2023-12-16 06:40] LABS: Absolute Basophils 0.1 K/uL (0-0.5); Absolute Eosinophils 0.2 K/uL (0-0.5); Absolute Lymphocytes (CBC) 1.4 K/uL (0.7-4.9); Absolute Monocytes 0.7 K/uL (0.1-1.3); Absolute Neutrophil 6.2 K/uL (1.8-8.0); Basophils % 0.8 % (0-1.3); Eosinophils % 2.7 % (0-4.4); Hematocrit 42.8 % (39.6-49.0); Hemoglobin 14.5 g/dL (13.6-17.9); MCH 32.8 pg (27.0-35.0); MCV 96.6 fL (80-100); MPV 8.7 fL (7.6-11.3); Monocytes % 8.4 % (3.3-12.3); Neutrophils % 72.1 % (41.7-73.7); Platelets 275 thou/uL (152-406); RBC Red Blood Cell Count 4.43 M/uL (4.33-5.43)
[2023-12-16 07:00] LABS: Anion Gap 7.1 mEq/L (5.0-15.0); Phosphorus 2.3 mg/dL (2.5-4.9); Potassium 4.1 mEq/L (3.5-5.1); T4,Total 8.4 ug/dL (4.5-12.1); Thyroid Stimulating Hormone 1.39 uIU/mL (0.358-3.740); Troponin High Sensitivity 8.9 pg/mL (<58.9)
[2023-12-16 07:26] VITALS: O2SAT 98
[2023-12-16] MEDS: VITAMIN D 5,000 UNIT CAP PO SCH (08:43)
[2023-12-16] MEDS: FOLIC ACID 1 MG TABLET PO SCH (08:43)
--- NOTE | 2023-12-16 12:05 | RAD REPORT ---
EXAM DESCRIPTION: CT - Head Brain Wo Cont - 12/16/2023 11:52 am CLINICAL HISTORY: [address] CVA, headache COMPARISON: Head angio dated 12/15/2023; Head Brain Wo Cont dated 12/15/2023; Brain Wo Cont dated 12/14; Neck Angio dated 12/15/2023 TECHNIQUE: All CT scans are performed using dose optimization technique as appropriate and may inclu de automated exposure control or mA/KV adjustment according to patient size. FINDINGS: No intracranial hemorrhage, hydrocephalus or extra-axial fluid collection.Mild generalized brain atrophy.No areas of brain edema or evidence of midline shift. Diminished density is seen in th e medial left cerebellar hemisphere compatible with subacute infarct. No hemorrhagic component seen. The paranasal sinuses and mastoids are clear. The calvarium is intact. IMPRESSION: No acute intracranial abnormality.
--- NOTE | 2023-12-16 12:57 | P.DS ---
Admission Date: 12/15/23 Discharge Date: 12/16/23 Disposition: ROUTINE DISCHARGE Discharge Condition: GOOD Reason for Admission: CVA Brief History of Present Illness: Diagnosis Acute CVA Dizziness and weakness Left internal carotid artery stenosis Diabetes Mellitus-NIDDM HTN/HLD HPI 12/15/2023 Doc Ely is a 68 year old male with PMhx diabetes mellitusNIDDM, hypertension, hyperlipidemia who presents to the ED with chief complaint of feeling faint, lightheadedness, generalized weakness which started this morning. He reports feeling that he could not get off of the lawnmower and asked family to help him at which time it took his and son to help him into the house. He reports never having an episode similar to this in the past. Initial Head CT and CTA are negative for acute findings but MRI head showing "Small acute left cerebellar infarction." TNK administered around 1234. Labs unremarkable. Initial vitals BP 179 / 93; Pulse 79; Resp 19 S; Pulse Ox 99% on R/A CT and CTA of head reports no acute findings CTA neck reports "Moderate stenosis distal left internal carotid artery" MRI brain reports "Small acute left cerebellar infarction." Chest X-ray reports "the lungs appear clear of acute infiltrate. The heart is normal size. IMPRESSION: No acute abnormalities displayed." Doc will be admitted to hospitalist service for further evaluation and treatment of acute CVA, Dr. Vaughan consulted. Hospital Course: Doc Ely is a pleasant 68-year-old male with a past medical history significant for diabetes mellitusNIDDM, hypertension, hyperlipidemia who was admitted to the [facility] on 12/15/2023 for CVA rule out. Doc presented to the ED symptoms such as feeling faint, lightheadedness, generalized weakness while working in the yard. His presentation was similar to be heat exhaustion and dehydration. CT head with CTA head/neck with no acute findings. He reported continued dizziness and was taken for a head MRI resulting with "Small acute left cerebellar infarction." TNK was given and Doc was admitted to the ICU for 24 hour observation. NISS at 0 on evaluation for admission and he has been steady on his feet. Dr. Vaughan was consulted with recommendations for folic acid and statin started. He did not experience acute events overnight. Telemetry negative for arrhythmias. [address] this morning resulted negative for acute findings. Lovenox 40 mg subcu x 1 prior to discharge. Triglyceride elevated at 370, cholesterol at 318, and LDL at 209. Blood pressure has remained stable, he is tolerating PO diet, ambulating independently, and urinating without difficulty. On 12/16/2023, Doc was seen on morning rounds and deemed medically stable for discharge. Doc was discharged with instructions to schedule follow-up appointments with Dr. Vaughan and PCP. Doc was provided prescriptions for Plavix, Lipitor, Zetia, aspirin, folic acid. Physical Exam General: Alert and Oriented x3, NAD HEENT: Atraumatic, Normocephalic Neck: Supple, JVD not distended Respiratory: Clear to auscultation bilaterally, Normal air movement, on RA Cardiovascular: Normal pulses, NSR, Normal S1 S2 Gastrointestinal: Normal bowel sounds, Soft and benign on palpation, NT/ND Musculoskeletal: No clubbing, 2+ peripheral pulses Integumentary: No rashes Neurological: Normal speech, Normal tone Vital Signs/Physical Exam: Temp Pulse Resp BP Pulse Ox 97.3 F 82 18 164/81 H 99 12/16/23 07:00 12/16/23 10:00 12/16/23 10:00 12/16/23 10:00 12/16/23 10:00 Laboratory Data at Discharge: WBC 8.60 thou/uL (4.3-10.9) 12/16/23 05:33 Hgb 14.5 g/dL (13.6-17.9) 12/16/23 05:33 Hct 42.8 % (39.6-49.0) 12/16/23 05:33 Plt Count 275 thou/uL (152-406) 12/16/23 05:33 PT 11.4 SECONDS (9.4-12.5) 12/15/23 11:21 INR 1.02 12/15/23 11:21 Sodium 140 mEq/L (136-145) 12/16/23 05:33 Potassium 4.1 mEq/L (3.5-5.1) 12/16/23 05:33 BUN 17 mg/dL (7-18) 12/16/23 05:33 Creatinine 1.26 mg/dL (0.70-1.30) 12/16/23 05:33 Glucose 160 mg/dL (74-106) H 12/16/23 05:33 Phosphorus 2.3 mg/dL (2.5-4.9) L 12/16/23 05:33 Magnesium 2.0 mg/dL (1.6-2.4) 12/16/23 05:33 Triglycerides 370 mg/dL (<150) H 12/16/23 05:33 Cholesterol 318 mg/dL (<200) H 12/16/23 05:33 HDL Cholesterol 35 mg/dL (40-60) L 12/16/23 05:33 Cholesterol/HDL Ratio 9.09 12/16/23 05:33 Home Medications: Amlodipine [Norvasc*] 5 mg PO DAILY 12/15/23 glipiZIDE [Glipizide] 5 mg PO DAILY 12/15/23 lisinopriL [Lisinopril] 20 mg PO DAILY 12/15/23 Aspirin [Aspirin EC 81 MG] 81 mg PO DAILY 30 Days #30 tab 12/16/23 Atorvastatin Calcium [Lipitor] 40 mg PO BEDTIME 30 Days #30 tab 12/16/23 Clopidogrel Bisulfate [Plavix] 75 mg PO DAILY 30 Days #30 tab 12/16/23 Ezetimibe [Zetia] 10 mg PO DAILY 30 Days #30 tab 12/16/23 Folic Acid 1 mg PO DAILY 30 Days #30 tab 12/16/23 New Medications: Aspirin [Aspirin EC 81 MG] 81 mg PO DAILY 30 Days #30 tab Folic Acid 1 mg PO DAILY 30 Days #30 tab Atorvastatin Calcium [Lipitor] 40 mg PO BEDTIME 30 Days #30 tab Clopidogrel Bisulfate [Plavix] 75 mg PO DAILY 30 Days #30 tab Ezetimibe [Zetia] 10 mg PO DAILY 30 Days #30 tab Physician Discharge Instructions: 1.Please call and schedule a follow-up appointment with your PCP in 3-5 days - Please follow-up with your PCP for medication refills/adjustments -Please inquire better blood glucose management, A1C 6.9 2. Please call and schedule a follow-up appointment with Dr. Vaughan in 3-5 days -Dr. Vaughan manage new medications 3. Continue Diabetic diet, A1C 6.9 4. activity restrictions fall precautions 5. Return to the ED if symptoms worsen Lipid panel (triglyceride 370, cholesterol 318, LDL 209, HDL 35) MRI reports "Small acute left cerebellar infarction." New medications Aspirin 81 mg p.o. daily Lipitor 40 mg p.o. daily-for cholesterol Folic acid 1 mg p.o. daily Zetia 10 mg p.o. daily-triglyceride Plavix 75 mg p.o. daily Diet: Regular Activity: Ad jad Followup: Guido Vaughan MD [ASSOCIATE-ACTIVE - CAN ADMIT] - Marco Guajardo MD [Primary Care Provider] -
[2023-12-16] MEDS: ENOXAPARIN 40 MG/0.4 ML SQ ONE (13:20)
[2023-12-16 13:40] VITALS: BP 154/87; TEMP 97.9
== END 2023-12-16 13:30 | disposition home or self-care (01) | DRG 62 ==
LOC: ER 10:31 → ERHOLD 13:39 → 3RD-ICU 14:50
PROVIDERS: ADMIT Internal Medicine; ATTEND Internal Medicine
DX: I63.9 Cerebral infarction, unspecified (principal); N17.9 Acute kidney failure, unspecified; E78.5 Hyperlipidemia, unspecified; I10 Essential (primary) hypertension; E86.0 Dehydration; I65.22 Occlusion and stenosis of left carotid artery; E11.9 Type 2 diabetes mellitus without complications; R29.700 NIHSS score 0; Z88.0 Allergy status to penicillin; Z79.82 Long term (current) use of aspirin; Z79.02 Long term (current) use of antithrombotics/antiplatelets; Z79.899 Other long term (current) drug therapy; Z91.148 Patient's other noncompliance with medication regimen for other reason
CPT/HCPCS: 36415; 70450; 70496; 70498; 70551; 71045; 80048; 80061; 81240; 81241; 82306; 82565; 82607; 82947; 83036; 83090; 83735; 83880; 84100; 84165; 84425; 84436; 84443; 84484; 85025; 85300; 85302; 85305; 85306; 85610; 86021; 86147; 86592; 86593; 92610; 92977; 93005; 96361; 96365; 97116; 97161; 99285; J1650; J3101; J7030; Q9967